=== PATIENT | male | born 1940 | race Caucasian/White ===

== ENCOUNTER 2018-07-12 16:47 | Emergency (ER) | payer MEDICARE ==
[2018-07-12] MEDS ORDERED: Sodium Chloride 0.9% 10 ML Syringe FLUSH PRN (17:17)
[2018-07-12] MEDS ORDERED: cefTRIAXone 1 GM Vial ONE (17:45)
[2018-07-12] MEDS ORDERED: cefTRIAXone 1 GM in Sodium Chloride 0.9% 50 ML IV ONE (17:52)
[2018-07-12] MEDS ORDERED: Amoxicillin/Clavulanate K 875-125 MG Tab ONE (18:05)
--- NOTE | 2018-07-14 14:33 | EDM.PDOC ---
ED HPI GENERAL MEDICAL PROBLEM - General Chief Complaint: Skin Complaint Stated Complaint: left foot swelling Time Seen by Provider: 07/12/18 16:51 Source of Information: Reports: Patient History Limitations: Reports: No Limitations - History of Present Illness Onset: Sudden Duration: Day(s):, Getting Worse Location: Reports: Lower Extremity, Left Severity: Mild Improves with: Reports: None Worsens with: Reports: None Associated Symptoms: Reports: Fever/Chills - Related Data Allergies Allergy/AdvReac Type Severity Reaction Status Date / Time No Known Allergies Allergy Verified 07/12/18 17:12 Past Medical History HEENT History: Reports: None Cardiovascular History: Reports: Bypass, Hypertension Respiratory History: Reports: Sleep Apnea Oncologic (Cancer) History: Reports: Prostate, Squamous Cell Carcinoma Social & Family History - Family History Family Medical History: Noncontributory - Tobacco Use Smoking Status *Q: Never Smoker Second Hand Smoke Exposure: No - Caffeine Use Caffeine Use: Reports: None - Recreational Drug Use Recreational Drug Use: No ED ROS GENERAL - Review of Systems Review Of Systems: ROS reveals no pertinent complaints other than HPI. Constitutional: Reports: Fever, Chills HEENT: Reports: No Symptoms Respiratory: Reports: No Symptoms Cardiovascular: Reports: No Symptoms Endocrine: Reports: No Symptoms GI/Abdominal: Reports: No Symptoms : Reports: No Symptoms Musculoskeletal: Reports: No Symptoms Skin: Reports: Erythema Neurological: Reports: No Symptoms Psychiatric: Reports: No Symptoms ED EXAM, SKIN/RASH Exam: See Below Exam Limited By: No Limitations General Appearance: Alert, WD/WN, No Apparent Distress Eye Exam: Bilateral Eye: EOMI, PERRL Ears: Normal External Exam Nose: Normal Inspection Throat/Mouth: Normal Inspection Head: Atraumatic, Normocephalic Neck: Normal Inspection Respiratory/Chest: No Respiratory Distress Cardiovascular: Normal Peripheral Pulses Peripheral Pulses: 2+: Dorsalis Pedis (L), Dorsalis Pedis (R) GI/Abdominal: Normal Bowel Sounds Back Exam: Normal Inspection Extremities: Increased Warmth (left foot dorsum) Neurological: Alert, Oriented Psychiatric: Normal Affect, Normal Mood Course - Vital Signs Last Recorded V/S: Last Vital Signs Temp 37.7 C 07/12/18 18:05 Pulse 73 07/12/18 18:05 Resp 18 07/12/18 18:05 BP 128/60 07/12/18 18:05 Pulse Ox 98 07/12/18 18:05 - Orders/Labs/Meds Labs: Laboratory Tests 07/12/18 07/12/18 07/12/18 Range/Units 17:00 17:00 17:00 WBC 12.6 H (4.0-11.0) K/uL RBC 3.99 L (4.50-6.50) M/uL Hgb 14.0 (13.0-18.0) g/dL Hct 40.5 (40.0-54.0) % MCV 102 H (76-96) fL MCH 35.1 H (27.0-32.0) pg MCHC 34.6 (31.0-35.0) g/dL RDW 13.8 (11.0-16.0) % Plt Count 102 L (150-400) K/uL MPV 11.1 H (6.0-10.0) fL Neut % (Auto) 73.9 H (45.0-70.0) % Lymph % (Auto) 13.1 L (20.0-40.0) % [place] % (Auto) 12.8 H (3.0-10.0) % Eos % (Auto) 0.1 L (1.0-5.0) % Baso % (Auto) 0.1 (0.0-0.5) % Neut # (Auto) 9.29 H (2.00-7.50) K/uL Lymph # (Auto) 1.65 (1.50-4.00) K/uL [place] # (Auto) 1.61 H (0.20-0.80) K/uL Eos # (Auto) 0.01 L (0.04-0.40) K/uL Baso # (Auto) 0.01 L (0.02-0.10) K/uL Sodium 137 (136-145) mmol/L Potassium 4.1 (3.5-5.1) mmol/L Chloride 105 (98-107) mmol/L Carbon Dioxide 21.4 (21.0-32.0) mmol/L Anion Gap 14.7 (5.0-15.0) mmol/L BUN 25 (8-26) mg/dL Creatinine 1.46 H (0.70-1.30) mg/dL Est Cr Clr Drug Dosing TNP Estimated GFR (MDRD) 47 L (>60) MLS/MIN BUN/Creatinine Ratio 17.1 (6-25) Glucose 119 H (74-100) mg/dL Lactic Acid (0.90-1.70) mmol/L Uric Acid 5.2 (2.6-7.2) mg/dL Calcium 9.4 (8.5-10.1) mg/dL 07/12/18 Range/Units 17:00 WBC (4.0-11.0) K/uL RBC (4.50-6.50) M/uL Hgb (13.0-18.0) g/dL Hct (40.0-54.0) % MCV (76-96) fL MCH (27.0-32.0) pg MCHC (31.0-35.0) g/dL RDW (11.0-16.0) % Plt Count (150-400) K/uL MPV (6.0-10.0) fL Neut % (Auto) (45.0-70.0) % Lymph % (Auto) (20.0-40.0) % [place] % (Auto) (3.0-10.0) % Eos % (Auto) (1.0-5.0) % Baso % (Auto) (0.0-0.5) % Neut # (Auto) (2.00-7.50) K/uL Lymph # (Auto) (1.50-4.00) K/uL [place] # (Auto) (0.20-0.80) K/uL Eos # (Auto) (0.04-0.40) K/uL Baso # (Auto) (0.02-0.10) K/uL Sodium (136-145) mmol/L Potassium (3.5-5.1) mmol/L Chloride (98-107) mmol/L Carbon Dioxide (21.0-32.0) mmol/L Anion Gap (5.0-15.0) mmol/L BUN (8-26) mg/dL Creatinine (0.70-1.30) mg/dL Est Cr Clr Drug Dosing Estimated GFR (MDRD) (>60) MLS/MIN BUN/Creatinine Ratio (6-25) Glucose (74-100) mg/dL Lactic Acid 0.99 (0.90-1.70) mmol/L Uric Acid (2.6-7.2) mg/dL Calcium (8.5-10.1) mg/dL Meds: Medications Discontinued Medications Generic Name Dose Route Start Last Admin Trade Name Freq PRN Reason Stop Dose Admin Amoxicillin/Clavulanate Potassium 20 tab 07/12/18 18:05 Augmentin 875 Mg/125 Mg .ROUTE 07/12/18 18:06 .STK-MED ONE Ceftriaxone Sodium Confirm 07/12/18 17:45 07/12/18 17:52 Rocephin Administered 07/12/18 17:46 Not Given Dose 1 gm .ROUTE .STK-MED ONE Ceftriaxone Sodium 1 gm/ 50 mls @ 100 mls/hr 07/12/18 17:52 07/12/18 17:52 Sodium Chloride IV 07/12/18 18:21 100 mls/hr ONETIME ONE Administration Sodium Chloride 10 ml 07/12/18 17:17 Saline Flush FLUSH ASDIRECTED PRN Keep Vein Open Departure - Departure Time of Disposition: 18:30 Disposition: Home, Self-Care 01 Condition: Good Clinical Impression: Cellulitis Qualifiers: Site of cellulitis: extremity Site of cellulitis of extremity: lower extremity Laterality: left Qualified Code(s): L03.116 - Cellulitis of left lower limb - Discharge Information Instructions: Cellulitis, Adult, [id number] Referrals: PCP,None [Primary Care Provider] - Forms: ED Department Discharge Additional Instructions: Discharge home. Diet: as tolerated Activity: as tolerated Medication: continue current home medications and start taking Augmentin 1 tablet 2 times a day for 10 days. Follow up with your primary physician as needed. Call or return to the ER if you have any questions or concerns. - Problem List & Annotations (1) Cellulitis SNOMED Code(s): 300784623 Code(s): L03.90 - CELLULITIS, UNSPECIFIED Status: Acute Priority: High Qualifiers: Site of cellulitis: extremity Site of cellulitis of extremity: lower extremity Laterality: left Qualified Code(s): L03.116 - Cellulitis of left lower limb - Problem List Review Problem List Initiated/Reviewed/Updated: Yes - Assessment/Plan Plan: Counseled on antibiotics and side effects. Counseled on rtc or ER if symptoms persist or worsen. Discussed compliance with antibiotics and to take the full course. F/u as directed.
== END 2018-07-12 18:15 | disposition home or self-care (01) ==
LOC: LB.ED 16:47
DX: L03.116 Cellulitis of left lower limb (principal); I10 Essential (primary) hypertension; Z85.828 Personal history of other malignant neoplasm of skin
CPT/HCPCS: 36415; 80048; 83605; 84550; 85025; 96374; 99283-25; A9270-GY; J0696; J7050